=== PATIENT | female | born 1965 | race Caucasian/White ===

== ENCOUNTER 2019-11-05 12:18 | Emergency (ER) | payer BC, OTHER ==
[2019-11-05 13:59] VITALS: BP 155/90
--- NOTE | 2019-11-05 14:10 | UC ---
Upper Extremity HPI - HPI Summary HPI Summary: 54-year-old female presenting with right elbow pain after she fell during the restraining at work today. Patient notes decreased range of motion of the elbow due to pain. She notes tingling and pain that shoots down into her right fourth and fifth fingers. States worse with movement of the elbow but also has shooting pains at rest sometimes. Denies decreased sensation. Unsure of swelling or bruising. Denies shoulder and wrist pain. - History of Current Complaint Chief Complaint: UCUpperExtremity Stated Complaint: ELBOW INJURY Hx Obtained From: Patient Hx Last Menstrual Period: n/a Pain Intensity: 7 Pain Scale Used: 0-10 Numeric - Allergies/Home Medications Allergies/Adverse Reactions: Allergies Allergy/AdvReac Type Severity Reaction Status Date / Time bee venom protein (honey bee) Allergy Severe Anaphylatic Verified 09/12/19 09:15 Shock Penicillins Allergy Severe Hives Verified 09/12/19 09:15 Iodine and Iodide Containing Allergy Unknown HIVES , Verified 09/12/19 09:15 Produc MOUTH FEELS NUMB latex Allergy Unknown Rash Verified 09/12/19 09:15 seafood Allergy See Comment Uncoded 09/12/19 09:15 PMH/Surg Hx/FS Hx/Imm Hx Other History Of: Negative For: HIV, Hepatitis B, Hepatitis C, Anticoagulant Therapy - Surgical History Surgical History: Yes Surgery Procedure, Year, and Place: complete hysterectomy, gallblader, hernia, t &a as child; Rt wrist surgery for De Quervains release 05/19 and 2013. left breast lumpectomy - Family History Known Family History: Positive: Diabetes, Other - Cancer Negative: Cardiac Disease, Hypertension - Social History Alcohol Use: Occasionally Alcohol Amount: 3/week Substance Use Type: None Substance Use Comment - Amount & Last Used: akes oxycodone daily Smoking Status (MU): Never Smoked Tobacco Have You Smoked in the Last Year: No - Immunization History Vaccination Up to Date: Yes Review of Systems All Other Systems Reviewed And Are Negative: No Constitutional: Positive: Negative Skin: Positive: Negative. Negative: Bruising Respiratory: Positive: Negative Cardiovascular: Positive: Negative Musculoskeletal: Positive: Arthralgia - R elbow, Decreased ROM - R elbow. Negative: Edema Neurological: Positive: Paresthesia - R 4th and 5th fingers. Negative: Numbness Physical Exam - Summary Physical Exam Summary: Vital Signs Reviewed: Yes A+Ox3, no distress Eyes: Conjunctiva Clear ENT: Hearing grossly normal Neck: Positive: Supple Respiratory: Positive: No respiratory distress, No accessory muscle use Cardiovascular: Skin reflects adequate perfusion Musculoskeletal Exam: +TTP of R elbow, decreased ROM flexion/extension of R elbow d/t pain, R handgrip strength intact, no edema, sensation grossly intact 2 + radial pulses Neurological: Positive: Alert Psychological: Positive: age appropriate behavior Skin: Positive: no rash, no ecchymosis Vital Signs: Initial Vital Signs Temp 98.6 F 11/05/19 13:53 Pulse 85 11/05/19 13:53 Resp 16 11/05/19 13:53 BP 155/90 11/05/19 13:53 Pulse Ox 100 11/05/19 13:53 Diagnostics - Radiology R elbow Radiology Interpretation Completed By: Radiologist Summary of Radiographic Findings: FINDINGS: The bones are in normal alignment. No joint effusion or fracture is seen. Joint spaces appear maintained. IMPRESSION: NO EVIDENCE FOR FRACTURE. Upper Extremity Course/Dx - Course Course Of Treatment: Discussed negative radiograph with patient. Instructed to continue with rest, ice, elevation and use of sling to help relieve pain and any swelling. Patient received ibuprofen here for pain. Instructed to follow-up with Dr. Manning if pain does not resolve within 1-2 weeks. Patient voiced understanding and agreed with the treatment plan. - Differential Dx/Diagnosis Differential Diagnosis/HQI/PQRI: Contusion, Fracture (Closed), Strain, Sprain Provider Diagnosis: Elbow pain, right Discharge ED - Sign-Out/Discharge Documenting (check all that apply): Patient Departure All imaging exams completed and their final reports reviewed: Yes - Discharge Plan Condition: Stable Disposition: HOME Patient Education Materials: Arthralgia (ED) Forms: *Work Release Referrals: Colt Manning MD [Medical Doctor] - If Needed Additional Instructions: As discussed, your xrays did not show any abnormalities. Rest, ice, elevate, and use the sling to help alleviate pain and swelling. Use over the counter pain medications as directed for pain relief. Refrain from strenuous physical activity until pain has resolved. Follow-up with Dr. Manning if pain worsens or does not resolve within 1-2 weeks. - Billing Disposition and Condition Condition: STABLE Disposition: Home
[2019-11-05] MEDS ORDERED: Ibuprofen TAB* 600 MG PO ONE (14:47)
== END 2019-11-05 15:00 | disposition home or self-care (01) ==
LOC: UCEAST 12:18
DX: M25.521 Pain in right elbow (principal); Z91.013 Allergy to seafood; Z91.040 Latex allergy status; Z88.0 Allergy status to penicillin; Z91.030 Bee allergy status; Z91.09 Other allergy status, other than to drugs and biological substances; W18.30XA Fall on same level, unspecified, initial encounter; Y92.9 Unspecified place or not applicable; Y99.0 Civilian activity done for income or pay
CPT/HCPCS: 99212; A9270-GY; G0463

== ENCOUNTER 2019-12-19 12:44 | Emergency (ER) | payer OTHER ==
[2019-12-19 13:17] VITALS: BP 129/74
--- NOTE | 2019-12-19 14:13 | UC ---
Neck Pain HPI - HPI Summary HPI Summary: Work injury on 11/05/2019 which resulted from a restraint during the course of her work at [employer]. She was aware of a strain through her right arm as well as a jam to her left elbow, with some ulnar symptoms for a few weeks. MRI done in [place] shows tendon tears in the right shoulder. Comes today due to onset 3 days ago of a sharp stabbing pain posterior to the right ear, which recurs up to 10 times per hour. Short sharp jabs of pain have been recurring. She has not had any other injury and remains off work. comes for assessment due to concern that this is related to the work injury. - History of Current Complaint Chief Complaint: UCBackPain Stated Complaint: RIGHT SHOULDER (WC) Time Seen by Provider: 12/19/19 13:49 Hx Obtained From: Patient Hx Last Menstrual Period: n/a ?: No Onset/Duration Of Injury/Symptoms: Days - 3 days of sharp shooting pain Onset/Duration: Sudden Onset, Lasting Days Severity: Mild Pain Intensity: 3 Location: Discrete At: - right mastoid area Character: Sharp Aggravating Factors: Nothing Alleviating Factors: Nothing - using ibuprofen 800mg Associated Signs & Symptoms: Positive: Negative - Risk Factors Meningitis Risk Factors: Negative - Allergies/Home Medications Allergies/Adverse Reactions: Allergies Allergy/AdvReac Type Severity Reaction Status Date / Time bee venom protein (honey bee) Allergy Severe Anaphylatic Verified 09/12/19 09:15 Shock Penicillins Allergy Severe Hives Verified 09/12/19 09:15 Iodine and Iodide Containing Allergy Unknown HIVES , Verified 09/12/19 09:15 Produc MOUTH FEELS NUMB latex Allergy Unknown Rash Verified 09/12/19 09:15 seafood Allergy See Comment Uncoded 09/12/19 09:15 Home Medications: Home Medications Linzess (NF) 150 mg PO DAILY 08/06/15 [History Confirmed 12/19/19] Miralax* 1 packet PO EVERY OTHER DAY 08/06/15 [History Confirmed 12/19/19] Melatonin 5 mg PO QPM 06/09/19 [History Confirmed 12/19/19] Multivitamin [Once Daily] 1 each PO QAM 06/09/19 [History Confirmed 12/19/19] Tizanidine HCl 2 mg PO BID #30 cap 12/19/19 [Rx] PMH/Surg Hx/FS Hx/Imm Hx GI/ History: Other - IBS constipation predominant. Other History Of: Negative For: HIV, Hepatitis B, Hepatitis C, Anticoagulant Therapy - Surgical History Surgical History: Yes Surgery Procedure, Year, and Place: complete hysterectomy, gallblader, hernia, t &a as child; Rt wrist surgery for De Quervains release 05/19 and 2013. left breast lumpectomy - Family History Known Family History: Positive: Diabetes, Other - Cancer--mother CA brain, father multiple myelomoa Negative: Cardiac Disease, Hypertension - Social History Occupation: Disabled - currently Alcohol Use: Occasionally Alcohol Amount: 3/week Substance Use Type: None Substance Use Comment - Amount & Last Used: akes oxycodone daily Smoking Status (MU): Never Smoked Tobacco Have You Smoked in the Last Year: No - Immunization History Vaccination Up to Date: Yes Review of Systems All Other Systems Reviewed And Are Negative: Yes Constitutional: Positive: Negative Skin: Positive: Negative Eyes: Positive: Negative ENT: Positive: Negative Respiratory: Positive: Negative Cardiovascular: Positive: Negative Gastrointestinal: Positive: Negative Genitourinary: Positive: Negative Motor: Positive: Decreased ROM - cervical spine motion decreased Musculoskeletal: Positive: Negative Neurological/Mental Status: Positive: Headache, Paresthesia - persistent right thumb post past injury Psychological: Positive: Negative Physical Exam Appearance: Well-Appearing, Pain Distress - mild Vital Signs: Initial Vital Signs Temp 99.3 F 12/19/19 13:12 Pulse 88 12/19/19 13:12 Resp 20 12/19/19 13:12 BP 129/74 12/19/19 13:12 Pulse Ox 99 12/19/19 13:12 ENT: Positive: Pharynx normal Neck: Positive: Supple, Nontender, No Lymphadenopathy Respiratory: Positive: Lungs clear, Normal breath sounds Cardiovascular: Positive: RRR, No Murmur Musculoskeletal Exam: Other - holding her head in a stiff position, with tenderness in the right trapezius. Musculoskeletal: Positive: ROM Limited @ - cervical spine. FF decreased, decreased rotation both right and left. Neurological Exam: Other - No pronator drift, normal hand supervisor files. Neurological: Positive: Alert, Muscle Tone Normal Psychological Exam: Normal Skin Exam: Other - no rash Diagnostics - Radiology No standard instances Radiology Interpretation Completed By: Radiologist - Patient Name: VICKIE DYE Medical Record#: [id number] Ordering Physician: Patricia Combs MD Acct.#: [id number] : Age: 54 Sex: F Location: [facility] Exam Date: 12/19/191406 ADM Status: REG ER Order Information: SP CERVICAL 4+VWS Accession Number : [id number] CPT: 18244 HISTORY: injury 11/05 with progressive restriction COMPARISONS: November VIEWS: 6, Frontal, lateral, open-mouth odontoid, and bilateral oblique views of the cervical spine. FINDINGS: The cervical spine is visualized from the skull base through C7-T1. ALIGNMENT: There is straightening of the normal cervical lordosis. VERTEBRAL BODIES: The odontoid process is intact. JOINTS: There is no subluxation or dislocation. The facet joints are unremarkable. There is no osseous neural foraminal narrowing on the oblique views. INTERVERTEBRAL DISCS: There is mild diffuse loss of intervertebral disc height. SOFT TISSUE: The prevertebral soft tissues are normal. OTHER: The skull base is normal. The lung apices are clear. IMPRESSION: MILD DEGENERATIVE DISC DISEASE. <Electronically signed by Med Arellano MD in [place]> 12/19/19 1421 Dictated By: Med Arellano MD Dictated Date/Time: 12/19/19 1420 Transcribed Date/Time: 12/19/19 142 Copy to: CC:Mauro ENCISO; Patricia Combs MD Imaging - [facility] Imaging - [place] [facility] [address] [place] [address] ph ([phone]) ph ([phone]) ph ) This report is only to be considered final once signed by the Provider(s) as displayed in the "<Electronically Signed by >" field (s). Absence of a signature indicates the report is in a draft status and still needs to be finalized. In the event this document was created by someone other than the signing Provider, the individual initiating the document will be listed in the "Entered by:" or "Dictated by:" willis. 1 of 1 Neck Pain Course/Dx - Course Course Of Treatment: Discussed that clinical presentation suggests trigeminal neuralgia, not a radiculopathy, and that I am not aware of a relationship of this with trauma. She has significant spasm in the trapezius muscle. She has no rash to suggest zoster. Will try tizanadine--might help with both muscle spasm and neuralgia. Has follow up with Dr. Manning 12/29. - Differential Dx/Diagnosis Differential Dx/HQI/PQRI: Dystonia, Strain, Trauma, Other - trigeminal neuralgia Provider Diagnosis: Trigeminal neuralgia Discharge ED - Sign-Out/Discharge Documenting (check all that apply): Patient Departure All imaging exams completed and their final reports reviewed: Yes - Discharge Plan Condition: Stable Disposition: HOME Prescriptions: Tizanidine HCl 2 mg PO BID #30 cap Patient Education Materials: Trigeminal Neuralgia (ED) Referrals: Mauro Cox PA [Primary Care Provider] - Additional Instructions: As we discussed, the new pain is most suggestive of trigeminal neuralgia. Given the degree of spasm which you have in your muscles, a trial of baclofen ( tiaznadine) will be used. Follow up with Dr. Manning on 12/29 as arranged. continue use of ibuprofen 800mg up to 3x per day. Monitor for rash --be alert for possible herpes zoster (shingles). The muscle relaxant can be mildly sedating--if it is too fagtiguing, limit to night time use. - Billing Disposition and Condition Condition: STABLE Disposition: Home
== END 2019-12-19 14:58 | disposition home or self-care (01) ==
LOC: UCCORT 12:44
DX: G50.0 Trigeminal neuralgia (principal); K58.1 Irritable bowel syndrome with constipation; M50.30 Other cervical disc degeneration, unspecified cervical region; Z79.899 Other long term (current) drug therapy; Z91.030 Bee allergy status; Z88.0 Allergy status to penicillin; Z88.8 Allergy status to other drugs, medicaments and biological substances; Z91.040 Latex allergy status; Z91.013 Allergy to seafood
CPT/HCPCS: 72050; 99212; G0463